=== PATIENT | male | born 1980 | race Caucasian/White ===

== ENCOUNTER 2019-03-26 08:41 | Day surgery (SDC) | payer OTHER ==
[2019-03-26] VITALS (15 sets, daily range): BP systolic 103–140; BP diastolic 55–78; PULSE 72–75; RESP 15–22; Ht 160 cm; Wt 140.0 kg
[~2019-03-26] VITALS: Ht 160 cm; Wt 140.0 kg
[~2019-03-26 08:41] MED LIST: AMLO-147 ORAL; BUME2TAB3 ORAL; CARV25TA79 ORAL; DULO60CA60 ORAL; FERR325T5 ORAL; GLIP10TA14 ORAL; HYDR10TA36 ORAL; INSU100I33 SUBDERMAL; INSU200I SUBCUTANE; LACTATED RINGER'S 1,000 ML IV SCH; METF100010 ORAL; SPIR25TA PO
[2019-03-26] MEDS ORDERED: PROPOFOL 20 ML ONE (11:14)
[2019-03-26] MEDS ORDERED: hydrALAzine 20 MG INJ IV PRN (12:00)
[2019-03-26] MEDS ORDERED: MEPERIDINE 25 MG INJ IV PRN (12:00)
[2019-03-26] MEDS ORDERED: LABETALOL HCL 20MG INJ IV PRN (12:00)
[2019-03-26] MEDS ORDERED: ONDANSETRON 4 MG INJ IV PRN (12:00)
[2019-03-26] MEDS ORDERED: DIPHENHYDRAMINE 50 MG INJ IV PRN (12:00)
[2019-03-26] MEDS ORDERED: OXYCODONE/ACETAMINOPHEN (5/325) TAB PO PRN ×2 (12:00)
[2019-03-26] MEDS ORDERED: EPHEDrine 25 MG/5 ML SYG IV PRN (12:00)
[2019-03-26] MEDS ORDERED: METOCLOPRAMIDE 10 MG INJ IV PRN (12:00)
[2019-03-26] MEDS ORDERED: MIDAZOLAM 1 MG/ML 2 ML INJ IV PRN (12:00)
[2019-03-26] MEDS ORDERED: FENTAnyl 50 MCG/ML VIAL IV PRN ×3 (12:00)
== END 2019-03-26 13:00 | disposition home or self-care (01) ==
LOC: SDS 08:41
PROVIDERS: ATTEND Internal Medicine Gastroenterology
DX: I13.0 Hypertensive heart and chronic kidney disease with heart failure and stage 1 through stage 4 chronic kidney disease, or unspecified chronic kidney disease (principal); I50.9 Heart failure, unspecified; N18.9 Chronic kidney disease, unspecified; E11.9 Type 2 diabetes mellitus without complications; E66.01 Morbid (severe) obesity due to excess calories; Z68.43 Body mass index [BMI] 50.0-59.9, adult; Z79.4 Long term (current) use of insulin
CPT/HCPCS: 43239; 71045; 80048; 85025; 88305; 93005; Z7512; Z7610